=== PATIENT | male | born 1995 | race Caucasian/White ===

== ENCOUNTER → 2017-03-13 | Outpatient (CLI) | payer BC | LOC: KOH-I 03-12 10:30 | DX: R22.0 Localized swelling, mass and lump, head (principal); J30.89 Other allergic rhinitis; J45.20 Mild intermittent asthma, uncomplicated; K58.0 Irritable bowel syndrome with diarrhea; R63.4 Abnormal weight loss; J32.0 Chronic maxillary sinusitis; R93.0 Abnormal findings on diagnostic imaging of skull and head, not elsewhere classified | CPT/HCPCS: 70450 ==

== ENCOUNTER → 2017-04-25 | Outpatient (CLI) | payer BC | LOC: KOH-I 10:41 | DX: K83.8 Other specified diseases of biliary tract (principal); R16.0 Hepatomegaly, not elsewhere classified | CPT/HCPCS: 76705 ==